=== PATIENT | female | born 1985 | race Caucasian/White ===

== ENCOUNTER 2016-11-10 10:48 | Emergency (ER) | payer OTHER ==
[~2016-11-10] VITALS: Ht 165.1 cm; Wt 88.5 kg
--- NOTE | 2016-11-10 11:27 | ED CARDIAC/CP/PALPITATIONS ---
History of Present Illness General Chief Complaint: Chest Pain Stated Complaint: CHEST PAIN, SOB, LT ARM PAIN, 13 WEEKS PREG Source: patient, old records Exam Limitations: no limitations Vital Signs & Intake/Output Vital Signs & Intake/Output Vital Signs Date Time Temp Pulse Resp B/P Pulse O2 O2 Flow FiO2 Ox Delivery Rate 11/10 1249 96.9 56 18 113/58 100 11/10 1104 97.1 64 20 103/68 99 Room Air Allergies Coded Allergies: NO KNOWN ALLERGIES (11/10/16) Reconcile Medications Levothyroxine Sodium (Synthroid) 175 MCG TABLET 1 TAB PO DAILY AC THYROID ( Reported) Triage Note: PT C/O CP SINCE SHE BENT OVER THIS MORNING. ALSO STATES LEFT ARM PAIN AND SOB. PT STATES SHE IS 13 WEEKS WITH EDC OF 05/17/17. EKG COMPLETED IN TRIAGE. . PREECCLAMPSIA WITH FIRST Triage Nurses Notes Reviewed? yes Onset: Abrupt Duration: hour(s): (4), better, constant, resolved prior to arrival Timing: single episode today Quality/Severity: mild, moderate, aching Location: substernal Radiation: no radiation Activities at Onset: bending over Prior Chest Pain/Card Workup: no prior chest pain Nitro Today/Relief: no nitro taken today Aspirin Today: no aspirin today Associated Symptoms: dyspnea, left arm pain resolved : Yes Patient currently breastfeeds: No HPI: 30-year-old female with history of hypothyroid, who is 13 weeks presents after developing sudden onset chest pain substernal nonradiating it came on while she was sitting on the floor attempting to bent over attempting to clear her son's rhinorrhea. He states the pain immediately began while attempting to bend over. She states the symptoms quickly resolved however she began to feel short of breath and have left arm pain which she states is since resolved. No history of asthma she does not smoke no history of similar episodes in the past. The patient states that she does not think she is been drinking a lot of fluids and feels rundown and tired. She denies any nausea vomiting diarrhea. No pain with inspiration or cough no fever no chills no hemoptysis. No recent travel or immobility. The patient only takes Synthroid currently. She denies any complications to this no abdominal pain no vaginal bleeding no discharge no urinary symptoms (MEREDITH GRAY,LYNDON) Past History Travel History Traveled to [place] past 21 day No Medical History Any Pertinent Medical History? see below for history Endocrine: HYPOTHYROID [employer]/Reproductive: preeeclampsia Surgical History Surgical History: , gastric bypass Psychosocial History What is your primary language Setsw[place] Tobacco Use: Never used ETOH Use: denies use Illicit Drug Use: denies illicit drug use Family History Hx Contributory? No (LYNDON FRANCO) Review of Systems Review of Systems Constitutional: Reports: see HPI. All Other Systems: Reviewed and Negative Comments Review of systems: See HPI, All other systems negative. Constitutional, no chills no fever, no malaise no weight loss HEENT: no sore throat no congestion, no ear pain Cardiovascular: No chest pain , no palpitation , no orthopnea no ankle swelling Skin, no jaundice no rashes, no change in skin Respiratory: No dyspnea no cough no sputum no hemoptysis GI: No nausea no vomiting, no diarrhea, no bloating/constipation : No dysuria No hematuria, no frequency Muscle skeletal: No joint pain, no joint swelling, no back pain, no neck pain, Neurologic: No numbness no headache Psych: No stress Heme/endocrine: No bruising no bleeding Immunology: No lymphadenopathy (LYNDON FRANCO) Physical Exam Physical Exam General Appearance: well developed/nourished, alert, awake Cardiovascular: regular rate/rhythm Comments: Well-developed well-nourished person in no acute distress HEENT: Normal EENT exam; PERRL, EOMI, no nystagmus. HEAD is atraumatic. moist mucous membranes. Neck: Supple, no lymphadenopathy, normal range of motion without pain or tenderness Back: Nontender, no CVA tenderness. Full range of motion Cardiovascular: Regular rate and rhythms no murmurs rubs or gallops, normal JVP Respiratory: Chest nontender.There were no bony deformities, no asymmetry. No respiratory distress. Patient speaking in full complete sentences. Breath sounds clear to auscultation bilaterally: NO W/R/R Abdomen: Soft, nontender nondistended, no appreciable organomegaly. Normal bowel sounds. No rebound/guarding Extremity: No edema, full range of motion of extremities, normal and equal pulses bilaterally, 5 out of 5 strength noted to bilateral upper and lower extremities normal sensation to bilateral upper extremities Neuro: Alert oriented x3, motor sensory normal, There were no obvious focal neurologic abnormalities. Skin: No appreciable rash on exposed skin, skin is warm and dry. Psych: Mood and affect is normal, memory and judgment is normal. Core Measures ACS in differential dx? Yes Severe Sepsis Present: No Septic Shock Present: No (MEREDITH GRAY,LYNDON) Progress Differential Diagnosis: AMI, atrial fibrillation, cholecystitis, CHF/pulm edema, costochondritis, musculoskeletal pain, myocarditis, pancreatitis, pericarditis, pneumonia, pneumothorax, pulmonary embolism, unstable angina Plan of Care: Orders Procedure Date/time Status Saline Lock 11/10 1138 Active TROPONIN LEVEL 11/10 1138 Complete COMPREHENSIVE METABOLIC PANEL 11/10 1138 Complete CBC WITHOUT DIFFERENTIAL 11/10 1138 Complete EKG 11/10 1049 Active Laboratory Tests 11/10/16 1147: Anion Gap 12, Estimated GFR > 60, BUN/Creatinine Ratio 16.7, Glucose 76, Calcium 9.0, Total Bilirubin 0.4, AST 15, ALT 29, Alkaline Phosphatase 63, Troponin I < 0.01, Total Protein 6.4, Albumin 3.6, Globulin 2.8, Albumin/Globulin Ratio 1.3, CBC w Diff NO MAN DIFF REQ, RBC 4.07 L, MCV 89.1, MCH 29.9, RDW 14.1, MPV 9.6, Gran % 76.1 H, Lymphocytes % 19.2 L, Monocytes % 3.8, Eosinophils % 0.6, Basophils % 0.3, Absolute Granulocytes 6.9 H, Absolute Lymphocytes 1.7, Absolute Monocytes 0.3, Absolute Eosinophils 0.1, Absolute Basophils 0, PUBS MCHC 33.5 Patient denies any symptoms at this time. The patient states that she believes she is dehydrated IV fluids ordered. She is normal sinus rhythm she denies any pain with inspiration no recent immobility or travel or recent surgery no cough no hemoptysis no fever. She denies any leg pain or swelling. Suspicion for pulmonary embolism is extremely low case was discussed with Dr. Lezama feels comfortable with this plan 11/10/2016 12:49:19 PM patient feeling improved she is complaining of a migraine headache which was medicated with Tylenol for. She denies any chest pain shortness of breath or arm pain at this time. She believes the arm pain upon repeat evaluation was a precursor to her migraine which she states can occasionally come on with pain or numbness in her face or right arm. Patient clinically appears well she is afebrile and nontoxic she's been normal sinus in the 50s and 60s there is no pleuritic component to patient's pain no shortness of breath 100% on room air she feels comfortable with plan. I discussed with the patient at length all of their results, need for close follow up with their primary care physician this week. I answered all of their questions, discharge instructions were given and discussed with the patient. They were given instructions as to when to return. I discussed the medications that will be provided with the patient. I gave them signs and symptoms that could indicate an adverse reaction. I have advised them to limit their activities until they can see how they respond to the medication. They feel comfortable with the plan. (LYNDON FRANCO) Initial ED EKG: normal sinus at 60, no acute ST segment changes normal axis Rhythm Strip: normal sinus rhythm (LYNDON FRANCO) Departure Departure Time of Disposition: 1248 Disposition: HOME OR SELF CARE Condition: Stable Clinical Impression Primary Impression: Chest wall muscle strain Referrals: DENIA SANCHEZ,JEWELS Louis (PCP/Family) Additional Instructions: follow Up with her primary care physician and [place] this week, return at anytime sooner if you redevelop symptoms as earlier or have any other concerns. Drink plenty of fluids Tylenol every 6-8 hours as needed Departure Forms: Customer Survey General Discharge Information (LYNDON FRANCO) PA/GAME WARDEN Co-Sign Statement Statement: ED Attending supervision documentation- [] I saw and evaluated the patient. I have also reviewed all the pertinent lab results and diagnostic results. I agree with the findings and the plan of care as documented in the PA's/GAME WARDEN's documentation. [X] I have reviewed the ED Record and agree with the PA's/GAME WARDEN's documentation. [] Additions or exceptions (if any) to the PAs/GAME WARDEN's note and plan are summarized below: [] (AROLDO SANCHEZ,ELIZABETH) Critical Care Note Critical Care Note Critical Care Time: non-applicable (LYNDON FRANCO)
[2016-11-10] MEDS ORDERED: SYNTHROID175 MCG PO (11:42)
[2016-11-10 12:16] LABS: ABSOLUTE BASOPHIL COUNT 0 /CUMM (0.0-0.2); ABSOLUTE EOSINOPHIL COUNT 0.1 /CUMM (0.0-0.7); ABSOLUTE GRANULOCYTE CT 6.9 /CUMM (1.4-6.5); ABSOLUTE LYMPH COUNT 1.7 /CUMM (1.2-3.4); ABSOLUTE MONOCYTE COUNT 0.3 /CUMM (0.10-0.60); BASOPHIL % 0.3 % (0.0-2.0); EOSINOPHIL % 0.6 % (0-5); GRANULOCYTE % 76.1 % (42.2-75.2); HEMATOCRIT 36.3 % (37-47); MEAN CORPUSCULAR HGB 29.9 PG (27.0-31.0); MEAN CORPUSCULAR HGB CONC 33.5 G/DL (33.0-37.0); MEAN CORPUSCULAR VOLUME 89.1 FL (81.0-99.0); MEAN PLATELET VOLUME 9.6 FL (7.4-10.4); PLATELET COUNT 196 /CUMM (130-400); RBC DISTRIBUTION WIDTH 14.1 % (11.5-14.5); RED BLOOD CELL CT 4.07 /CUMM (4.20-5.40)
[2016-11-10 12:49] VITALS: BP 113/58
== END 2016-11-10 13:04 ==
LOC: ERH 10:48
PROVIDERS: Physician Assistant Medical
DX: O99.89 Other specified diseases and conditions complicating pregnancy, childbirth and the puerperium (principal); S29.011A Strain of muscle and tendon of front wall of thorax, initial encounter; R07.9 Chest pain, unspecified; Z3A.13 13 weeks gestation of pregnancy; X50.9XXA Other and unspecified overexertion or strenuous movements or postures, initial encounter
CPT/HCPCS: 93005; 93010; 96360